=== PATIENT | female | born 1995 | race American Indian/Alaskan Native ===

== ENCOUNTER 2019-11-05 15:29 | Emergency (ER) | payer SELFPAY ==
[2019-11-05] MEDS ORDERED: ACETAMINOPHEN 325 MG TAB PO ONE (16:10)
--- NOTE | 2019-11-05 16:10 | Event Note ---
ED Screening Note ED Screening Note: right labia cyst that began two days ago opened and drained on its own yellow coloration +dysuria that began two days ago +vaginal discharge two days no abd pain no back pain no n/v/d PMHx anxiety and tachycardia no allergies to meds LNMP: 10/29/2019 This initial assessment/diagnostic orders/clinical plan/treatment(s) is/are subject to change based on patients health status, clinical progression and re- assessment by fellow clinical providers in the ED. Further treatment and workup at subsequent clinical providers discretion. Patient/guardian urged not to elope from the ED as their condition may be serious if not clinically assessed and managed. Initial orders include: UA, urine preg, labs tylenol given
[2019-11-05 16:11] VITALS: BP 112/79
[2019-11-05 16:47] LABS: Bacteria,Urine 2+ /HPF (Negative); Bilirubin,Urine NEG (Negative); Blood,Urine SM (Negative); Color,Urine Yellow (Yellow); Mucus,Urine 3+ /HPF; WBC,Urine > 182.0 /HPF (0.0-6.0)
[2019-11-05 16:48] LABS: HCG Qualitative,Urine Negative (Negative)
== END 2019-11-05 19:20 | disposition left against medical advice (07) ==
LOC: ED 15:29
DX: N76.0 Acute vaginitis (principal); Z53.21 Procedure and treatment not carried out due to patient leaving prior to being seen by health care provider
CPT/HCPCS: 81001; 81025

== ENCOUNTER 2020-12-12 23:33 | Emergency (ER) | payer SELFPAY | END 2020-12-13 00:45 | disposition left against medical advice (07) | LOC: ED 23:33 | DX: Z00.8 Encounter for other general examination (principal); Z53.21 Procedure and treatment not carried out due to patient leaving prior to being seen by health care provider ==